=== PATIENT | female | born 1945 | race Caucasian/White ===

== ENCOUNTER → 2017-09-11 | Outpatient (CLI) | payer OTHER ==
--- NOTE | 2017-09-11 13:06 | RAD ---
Left lower extremity arterial Doppler ultrasound HISTORY: lt leg pain and toes bluish TECHNIQUE: Color Doppler, grayscale and duplex analysis performed of the right and left lower extremity arterial structures, from the common femoral artery through the calf. COMPARISON: None are available Findings: Left common femoral artery, superficial femoral artery and popliteal artery are patent. Left common femoral artery velocity is 106 cm/s. Superficial femoral artery velocities are 154, 53 and 59 at the proximal, mid and distal segments respectively. The posterior tibial artery velocities range from 16-27. Peroneal artery is 21. Anterior tibial artery is 21. Dorsalis pedis artery is 15. Monophasic waveforms are identified throughout. There is irregular calcified plaque throughout the arterial system. IMPRESSION: 1. Diffuse atherosclerotic disease. 2. Velocity elevation at the proximal superficial femoral artery could indicate a proximal high-grade stenosis. 3. No occlusive disease is seen. Ankle-brachial indices: The right ankle-brachial index is 0.98. The left ankle-brachial index is 0.58, which can be associated with claudication. Electronically signed by: Binu Perla MD (09/11/2017 1:02 PM) [id number]
== END | disposition home or self-care (01) ==
LOC: US 11:09
PROVIDERS: ATTEND Physician Assistant
DX: I70.0 Atherosclerosis of aorta (principal); I70.292 Other atherosclerosis of native arteries of extremities, left leg
CPT/HCPCS: 93922; 93926

== ENCOUNTER 2021-03-13 05:22 | Inpatient (IN) | payer MEDICARE ==
[~2021-03-13] VITALS: Ht 157.5 cm; Wt 115.3 kg
--- NOTE | 2021-03-13 06:08 | EKG ---
[address] [address] Test Date: 2021-03-13 Test Time: 06:03:12 Pat Name: ALICIA CHAUHAN Department: Room: Gender: F Front Tender: : 1945 Requested By: LORELEI AKERS Order Number: [id number] Reading MD: Javid Dow MD Measurements Intervals [place] Rate: 79 P: 50 WI: 146 QRS: 13 QRSD: 80 T: 28 QT: 386 QTc: 444 Interpretive Statements SINUS RHYTHM Electronically Signed On 03-13-2021 16:11:27 CYCLE DIRECTOR by Javid Dow MD
[2021-03-13 06:11] LABS: BASO # 0.1 x10^3/uL (0.0-0.2); BASO % 1 % (0-3); EOS # 0.2 x10^3/uL (0.0-0.7); EOS % 1 % (0-3); HEMATOCRIT 43.8 % (36.0-47.0); HEMOGLOBIN 14.5 g/dL (12.0-15.5); LYMPH # 1.3 x10^3/uL (1.0-4.8); LYMPH % 10 % (24-48); MEAN CORPUSCULAR HEMOGLOBIN 31 pg (25-35); MEAN CORPUSCULAR HGB CONC 33 g/dL (31-37); MEAN CORPUSCULAR VOLUME 92 fL (79-100); MONO # 0.6 x10^3/uL (0.0-1.1); MONO % 5 % (0-9); NEUT # 10.9 x10^3uL (1.8-7.7); NEUT % 84 % (31-73); PLATELET COUNT 188 x10^3/uL (140-400); RED BLOOD COUNT 4.76 x10^6/uL (3.50-5.40); RED CELL DISTRIBUTION WIDTH 14.1 % (11.5-14.5)
[2021-03-13] MEDS ORDERED: NITROGLYCERIN SUBLINGUAL 0.4 MG BOTTLE OF 25. SL PRN ×2 (06:15→07:30)
[2021-03-13] MEDS ORDERED: ASPIRIN CHEWABLE 81 MG TABLET. PO ONE (06:15)
[2021-03-13] MEDS ORDERED: FUROSEMIDE 100 MG/10 ML VIAL IVP ONE (06:15)
[2021-03-13 06:19] LABS: CALCIUM 9.3 mg/dL (8.5-10.1); CREATININE 1.1 mg/dL (0.6-1.0); GFR 48.3; POTASSIUM 3.7 mmol/L (3.5-5.1)
--- NOTE | 2021-03-13 06:19 | PHYS DOC ---
Past History Past Surgical History: Other Additional Past Surgical Histo: breast surgery Adult General Chief Complaint Chief Complaint: SHORTNESS OF BREATH HPI HPI Patient is a 75-year-old female who presented via POV for shortness of breath. States she has had 1 month of worsening shortness of breath. States within the past week she has had nasal congestion and slight rhinorrhea which she attributed to allergies. She also admits in the past 3 days she has missed her Lasix dose. States that she has been more short of breath that is exacerbated with physical exertion and laying flat. Has not had any fever, known sick con tacts or travel. She admits she is fully vaccinated against COVID-19 and received booster shot. On arrival, patient was hypoxic and complaining of shortness of breath only, no fever, dizziness, hemoptysis, ripping or tearing sensation in chest, chest pain, abdominal pain, bladder or bowel issues, unilateral leg swelling and/or pain, changes in motor or sensory or neuro function. Review of Systems Review of Systems Fourteen body systems of review of systems have been reviewed. See HPI for pertinent positives and negative responses, other dukes all other systems are negative, non-pertinent or non-contributory Allergies Allergies Allergies Coded Allergies Type Severity Reaction Last Updated Verified amoxicillin Allergy Unknown rash 03/13/21 Yes Physical Exam Physical Exam Constitutional: Well developed, well nourished, no acute distress, non-toxic appearance. HENT: Normocephalic, atraumatic, bilateral external ears normal, oropharynx moist, no oral exudates, nose normal. Nasal cannula in place Eyes: PERRLA, EOMI, conjunctiva normal, no discharge. Neck: Normal range of motion, no tenderness, supple, no stridor. Cardiovascular: Heart rate regular, sinus rhythm, no murmurs rubs or gallops Lungs & Thorax: Slight increased work of breathing, requiring supplemental O2 via nasal cannula to keep oxygen saturations greater than 90%, mild accessory muscle usage and neck, rales present in bilateral lung bases Abdomen: Bowel sounds normal, soft, no tenderness, no masses, no pulsatile masses. Nonsurgical abdomen, no peritoneal signs Skin: Warm, dry, no erythema, no rash. Back: No tenderness, no CVA tenderness. Extremities: No tenderness, no cyanosis, no clubbing, ROM intact, no edema. Neurologic: Alert and oriented X 3, grossly normal motor & sensory function, no focal deficits noted. Psychologic: Affect normal, judgement normal, mood normal. Current Patient Data Vital Signs Vital Signs Date Time Temp Pulse Resp B/P (MAP) Pulse Ox O2 Delivery O2 Flow Rate FiO2 03/13/21 05:29 98.2 89 27 209/128 (155) 96 NonRebreather Mask Lab Results Laboratory Tests Test 03/13/21 05:50 White Blood Count 13.0 x10^3/uL (4.0-11.0) H Red Blood Count 4.76 x10^6/uL (3.50-5.40) Hemoglobin 14.5 g/dL (12.0-15.5) Hematocrit 43.8 % (36.0-47.0) Mean Corpuscular Volume 92 fL (79-100) Mean Corpuscular Hemoglobin 31 pg (25-35) Mean Corpuscular Hemoglobin Concent 33 g/dL (31-37) Red Cell Distribution Width 14.1 % (11.5-14.5) Platelet Count 188 x10^3/uL (140-400) Neutrophils (%) (Auto) 84 % (31-73) H Lymphocytes (%) (Auto) 10 % (24-48) L Monocytes (%) (Auto) 5 % (0-9) Eosinophils (%) (Auto) 1 % (0-3) Basophils (%) (Auto) 1 % (0-3) Neutrophils # (Auto) 10.9 x10^3uL (1.8-7.7) H Lymphocytes # (Auto) 1.3 x10^3/uL (1.0-4.8) Monocytes # (Auto) 0.6 x10^3/uL (0.0-1.1) Eosinophils # (Auto) 0.2 x10^3/uL (0.0-0.7) Basophils # (Auto) 0.1 x10^3/uL (0.0-0.2) EKG EKG EKG ordered and interpreted by myself at 0605 hrs. as sinus rhythm at 79 bpm, unremarkable intervals, no axis deviation, no obvious ischemic findings, no STEMI Radiology/Procedures Radiology/Procedures EXAM: XR CHEST 1V 03/13/2021 5:35 AM CLINICAL INDICATION: Shortness of breath COMPARISON: None available TECHNIQUE: AP view of the chest FINDINGS: The heart is enlarged. Pulmonary vasculature is indistinct. There are bibasilar airspace opacities. No definite pleural effusion or pneumothorax. Chronic deformity of the right proximal humerus. IMPRESSION: Cardiomegaly and mild pulmonary edema. Electronically signed by: Zenia Trejo MD (03/13/2021 6:25 AM) [facility] ////////////////////// CTA chest with contrast dated 03/13/2021. No comparison available CLINICAL INDICATION: Shortness of breath. TECHNIQUE: Contiguous axial imaging the chest performed following the bolus administration of 75 cc Omnipaque 350. Study was performed as dedicated PE protocol with thin cut coronal and sagittal MIPS reconstruction. One or more of the following individualized dose reduction techniques were utilized for this examination: 1. Automated exposure control 2. Adjustment of the mA and/or kV according to patient size 3. Use of iterative reconstruction technique FINDINGS: Contrast bolus is adequate. No evidence of central, lobar or segmental pulmonary embolus. Subsegmental branches are not well evaluated based on technique. Heart size is mildly enlarged. Trace pericardial effusion. Coronary artery calcifications. Borderline enlarged left paratracheal, right paratracheal and subcarinal and bilateral hilar lymph nodes measuring up to 10 mm short axis. Central airways are patent. Moderate emphysema. Patchy increased density at both lung bases with small bilateral pleural effusions. There is also some patchy increased density in the left upper lobe and lingula. No pneumothorax. Limited images of the upper abdomen shows a mass at the left adrenal gland measuring 2.3 cm. There is also a low-density lesion at the upper pole right kidney consistent with cyst. Bone window show no acute finding. Multilevel spondylosis. IMPRESSION: 1. No evidence of central, lobar or segmental pulmonary embolus. 2. Patchy bibasilar airspace disease, atelectasis versus pneumonia. There are small to moderate-sized bilateral pleural effusions. 3. Borderline enlarged mediastinal and bilateral hilar lymph nodes, nonspecific. 4. Cardiomegaly and coronary artery calcifications. 5. Indeterminate left adrenal nodule. Electronically signed by: Binu Milelr MD (03/13/2021 7:06 AM) [facility] Heart Score C/O Chest Pain: No HEART Score for Chest Pain: HEART Score for Chest Pain Response (Comments) Value History Slighlty/Non-Suspicious 0 ECG Normal 0 Age > 65 2 Risk Factors >3 Risk Factors or Hx CAD 2 Troponin < Normal Limit 0 Total 4 Risk Factors: Risk Factors: DM, Current or recent (<one month) smoker, HTN, HLP, family history of CAD, obesity. Risk Scores: Risk Factors: DM, Current or recent (<one month) smoker, HTN, HLP, family history of CAD, obesity. Course & Med Decision Making Course & Med Decision Making I assumed care of patient after comprehensive signout from outgoing physician I personally saw patient and repeated aspects of history and physical exam. Comprehensive ER work-up obtained concerning for fluid overloaded state and patient who is missed Lasix for past 48 to 72 hours Patient most likely suffering from acute exacerbation of CHF due to fluid overload. Cannot exclude infectious etiology though given recent URI symptoms and productive cough Nitro assisted with blood pressure control and fluid overload, 100 mg IV Lasix administered. Subsequent 1 g Rocephin and 500 mg azithromycin administered for potential infectious etiology I contacted patient's PCP who also serves as hospitalist, patient accepted under the care of Dr. Zambrano for further inpatient medical management I have updated patient on proposed plan of care that included hospital admission for which she was amenable. She confirms she is full CODE STATUS at time of admission Dragon Disclaimer Dragon Disclaimer This electronic medical record was generated, in whole or in part, using a voice recognition dictation system. Departure Departure: Impression: Primary Impression: Acute respiratory failure with hypoxia Additional Impression: Acute exacerbation of CHF (congestive heart failure) Disposition: ADMITTED INPATIENT Admitting Physician: Devi Zambrano Condition: STABLE Referrals: DEVI ZAMBRANO MD (PCP) Problem Qualifiers RAGINI DE LA TORRE DO Mar 13, 2021 06:19
[2021-03-13 06:25] LABS: ALBUMIN 3.4 g/dL (3.4-5.0); ALBUMIN/GLOBULIN RATIO 0.9 (1.0-1.7); TOTAL BILIRUBIN 0.4 mg/dL (0.2-1.0); TOTAL PROTEIN 7.1 g/dL (6.4-8.2)
--- NOTE | 2021-03-13 06:28 | RAD ---
EXAM: XR CHEST 1V 03/13/2021 5:35 AM CLINICAL INDICATION: Shortness of breath COMPARISON: None available TECHNIQUE: AP view of the chest FINDINGS: The heart is enlarged. Pulmonary vasculature is indistinct. There are bibasilar airspace o pacities. No definite pleural effusion or pneumothorax. Chronic deformity of the right proximal humer us. IMPRESSION: Cardiomegaly and mild pulmonary edema. Electronically signed by: Zenia Trejo MD (03/13/2021 6:25 AM) [facility]
[2021-03-13] MEDS ORDERED: IOHEXOL 350 MG/ML 100 ML VIAL. IV ONE (06:30)
[2021-03-13] MEDS ORDERED: CONTRAST GIVEN. MC PRN (06:30)
--- NOTE | 2021-03-13 07:08 | RAD ---
CTA chest with contrast dated 03/13/2021. No comparison available CLINICAL INDICATION: Shortness of breath. TECHNIQUE: Contiguous axial imaging the chest performed following the bolus administration of 75 cc Omnipaque 35 0. Study was performed as dedicated PE protocol with thin cut coronal and sagittal MIPS reconstructio n. One or more of the following individualized dose reduction techniques were utilized for this examinat ion: 1. Automated exposure control 2. Adjustment of the mA and/or kV according to patient size 3. Use of iterative reconstruction technique FINDINGS: Contrast bolus is adequate. No evidence of central, lobar or segmental pulmonary embolus. Subsegmenta l branches are not well evaluated based on technique. Heart size is mildly enlarged. Trace pericardial effusion. Coronary artery calcifications. Borderline enlarged left paratracheal, right paratracheal and subcarinal and bilateral hilar lymph nodes measur ing up to 10 mm short axis. Central airways are patent. Moderate emphysema. Patchy increased density at both lung bases with smal l bilateral pleural effusions. There is also some patchy increased density in the left upper lobe and lingula. No pneumothorax. Limited images of the upper abdomen shows a mass at the left adrenal gland measuring 2.3 cm. There is also a low-density lesion at the upper pole right kidney consistent with cyst. Bone window show no acute finding. Multilevel spondylosis. IMPRESSION: 1. No evidence of central, lobar or segmental pulmonary embolus. 2. Patchy bibasilar airspace disease, atelectasis versus pneumonia. There are small to moderate-sized bilateral pleural effusions. 3. Borderline enlarged mediastinal and bilateral hilar lymph nodes, nonspecific. 4. Cardiomegaly and coronary artery calcifications. 5. Indeterminate left adrenal nodule. Electronically signed by: Binu Miller MD (03/13/2021 7:06 AM) [facility]
[2021-03-13] MEDS ORDERED: ACETAMINOPHEN 325 MG TABLET PO PRN (07:30)
[2021-03-13] MEDS ORDERED: AZITHROMYCIN 500 MG in IV NORMAL SALINE 250ML 250 ML IV ONE (07:30)
[2021-03-13] MEDS ORDERED: AZITHROMYCIN 500 MG VIAL. IV ONE (07:35)
[2021-03-13] MEDS ORDERED: IV NORMAL SALINE 250ML 250 ML ONE ×2 (07:35→07:38)
[2021-03-13 07:54] LABS: BILIRUBIN,URINE NEG (NEG); CLARITY,URINE CLEAR; COLOR,URINE YELLOW; GLUCOSE,URINE NEG (NEG); NITRITE,URINE NEG (NEG); UROBILINOGEN,URINE 0.2 mg/dL (0.2 mg/dL)
[2021-03-13 07:55] LABS: BACTERIA,URINE 0 /HPF (0-FEW); HYALINE CASTS, URINE OCC /HPF; SQUAMOUS EPITHELIAL CELL,UR MOD /LPF
[2021-03-13 08:43] VITALS: BP 140/84
--- NOTE | 2021-03-13 09:18 | NUR ---
PATIENT IS 75 Y O ARRIVED VIA EMS, PATIENT DENIED ANY PAIN AT THIS TIME, C/O COUGH AND SOB, CURRENTLY ON 4L OF O2 WITH SAT OF 93%. PATIENT WAS ORIENTED TO THE ROOM AND HOSPITAL POLICIES. PATIENT IS CURRENTLY IN A BED AWAKE AND EATING BREAKFAST, CALL LIGHT WITHIN THE REACH.
[2021-03-13] MEDS ORDERED: LEVO75TA PO (10:52)
[2021-03-13] MEDS ORDERED: LISI40TA6 PO (10:52)
[2021-03-13] MEDS ORDERED: METO50TA6 PO (10:52)
[2021-03-13] MEDS ORDERED: AMLO-186 PO (10:52)
[2021-03-13] MEDS ORDERED: CETI10TA74 PO (10:52)
[2021-03-13] MEDS ORDERED: MULT-238 PO (10:52)
[2021-03-13] MEDS ORDERED: CRESTOR10 MG PO (10:52)
[2021-03-13] MEDS ORDERED: CITA20TA6 PO (10:52)
[2021-03-13] MEDS ORDERED: CYCL10TA19 PO (10:52)
[2021-03-13] MEDS ORDERED: FENO160T PO (10:52)
[2021-03-13] MEDS ORDERED: FURO40TA4 PO (10:52)
[2021-03-13] MEDS ORDERED: OMEG1CAP50 PO (10:52)
[2021-03-13] MEDS ORDERED: POTA10TA12 PO (10:52)
[2021-03-13] MEDS: PROMETH/CODEINE 6.25/10MG 5 ML SYRUP. PO PRN ×2 (11:10→20:45)
[2021-03-13 11:32] VITALS: BP 128/76
--- NOTE | 2021-03-13 14:52 | NUR ---
CONSULT FOR SENIOR SOFTWARE PROJECT MANAGER HAS BEEN CALLED.
[2021-03-13 15:31] VITALS: BP 119/78
[2021-03-13 19:00] VITALS: BP 138/84
[2021-03-13] MEDS: POTASSIUM CHLORIDE 10 MEQ TABLET.ER. PO SCH (20:44)
[2021-03-13] MEDS: amLODIPine BESYLATE 5 MG TABLET PO SCH (20:45)
[2021-03-13] MEDS: METOPROLOL TART IMMED RELEASE 50 MG TABLET PO SCH (20:45)
[2021-03-13 23:00] VITALS: BP 159/84
[2021-03-14 05:00] VITALS: BP 166/78
[2021-03-14 05:57] LABS: HEMOGLOBIN A1C 5.6 % (4.8-5.6)
[2021-03-14 06:56] LABS: BASO # 0.1 x10^3/uL (0.0-0.2); BASO % 1 % (0-3); EOS # 0.2 x10^3/uL (0.0-0.7); EOS % 2 % (0-3); HEMATOCRIT 38.6 % (36.0-47.0); LYMPH # 1.5 x10^3/uL (1.0-4.8); LYMPH % 22 % (24-48); MEAN CORPUSCULAR HEMOGLOBIN 31 pg (25-35); MEAN CORPUSCULAR HGB CONC 34 g/dL (31-37); MEAN CORPUSCULAR VOLUME 93 fL (79-100); MONO # 0.6 x10^3/uL (0.0-1.1); MONO % 8 % (0-9); NEUT # 4.7 x10^3uL (1.8-7.7); NEUT % 67 % (31-73); PLATELET COUNT 163 x10^3/uL (140-400); RED BLOOD COUNT 4.16 x10^6/uL (3.50-5.40); RED CELL DISTRIBUTION WIDTH 14.4 % (11.5-14.5)
[2021-03-14 07:07] LABS: CALCIUM 8.5 mg/dL (8.5-10.1); CREATININE 1.3 mg/dL (0.6-1.0); GFR 39.8; POTASSIUM 3.9 mmol/L (3.5-5.1)
--- NOTE | 2021-03-14 08:22 | PDOC ---
CARDIO Progress Notes Date & Time Date of Service DATE: 03/14/21 TIME: 08:19 Time of Evaluation 07:45 Subjective Notes Breathing and edema improved. Has cough Vitals Vitals Vital Signs Date Time Temp Pulse Resp B/P (MAP) Pulse Ox O2 Delivery O2 Flow Rate FiO2 03/14/21 05:00 98.0 80 20 166/78 (107) 97 Nasal Cannula 4.0 Weight Weight [ ] Input and Output I.O. Intake and Output 03/14/21 07:00 Intake Total 720 ml Output Total 1675 ml Balance -955 ml Intake Oral 720 ml Output Urine Total 1675 ml # Voids 1 Laboratory Labs Laboratory Tests Test 03/13/21 05:50 03/13/21 05:55 03/13/21 07:15 03/14/21 06:27 White Blood Count 13.0 x10^3/uL (4.0-11.0) 7.0 x10^3/uL (4.0-11.0) Red Blood Count 4.76 x10^6/uL (3.50-5.40) 4.16 x10^6/uL (3.50-5.40) Hemoglobin 14.5 g/dL (12.0-15.5) 13.0 g/dL (12.0-15.5) Hematocrit 43.8 % (36.0-47.0) 38.6 % (36.0-47.0) Mean Corpuscular Volume 92 fL (79-100) 93 fL (79-100) Mean Corpuscular Hemoglobin 31 pg (25-35) 31 pg (25-35) Mean Corpuscular Hemoglobin Concent 33 g/dL (31-37) 34 g/dL (31-37) Red Cell Distribution Width 14.1 % (11.5-14.5) 14.4 % (11.5-14.5) Platelet Count 188 x10^3/uL (140-400) 163 x10^3/uL (140-400) Neutrophils (%) (Auto) 84 % (31-73) 67 % (31-73) Lymphocytes (%) (Auto) 10 % (24-48) 22 % (24-48) Monocytes (%) (Auto) 5 % (0-9) 8 % (0-9) Eosinophils (%) (Auto) 1 % (0-3) 2 % (0-3) Basophils (%) (Auto) 1 % (0-3) 1 % (0-3) Neutrophils # (Auto) 10.9 x10^3uL (1.8-7.7) 4.7 x10^3uL (1.8-7.7) Lymphocytes # (Auto) 1.3 x10^3/uL (1.0-4.8) 1.5 x10^3/uL (1.0-4.8) Monocytes # (Auto) 0.6 x10^3/uL (0.0-1.1) 0.6 x10^3/uL (0.0-1.1) Eosinophils # (Auto) 0.2 x10^3/uL (0.0-0.7) 0.2 x10^3/uL (0.0-0.7) Basophils # (Auto) 0.1 x10^3/uL (0.0-0.2) 0.1 x10^3/uL (0.0-0.2) Sodium Level 143 mmol/L (136-145) 144 mmol/L (136-145) Potassium Level 3.7 mmol/L (3.5-5.1) 3.9 mmol/L (3.5-5.1) Chloride Level 107 mmol/L (98-107) 106 mmol/L (98-107) Carbon Dioxide Level 27 mmol/L (21-32) 32 mmol/L (21-32) Anion Gap 9 (6-14) 6 (6-14) Blood Urea Nitrogen 13 mg/dL (7-20) 17 mg/dL (7-20) Creatinine 1.1 mg/dL (0.6-1.0) 1.3 mg/dL (0.6-1.0) Estimated GFR (Cockcroft-Gault) 48.3 39.8 BUN/Creatinine Ratio 12 (6-20) Glucose Level 174 mg/dL (70-99) 113 mg/dL (70-99) Hemoglobin A1c 5.6 % (4.8-5.6) Calcium Level 9.3 mg/dL (8.5-10.1) 8.5 mg/dL (8.5-10.1) Total Bilirubin 0.4 mg/dL (0.2-1.0) Aspartate Amino Transf (AST/SGOT) 16 U/L (15-37) Alanine Aminotransferase (ALT/SGPT) 24 U/L (14-59) Alkaline Phosphatase 112 U/L (46-116) Troponin I High Sensitivity 28 ng/L (4-50) XB-Owr-R-Type Natriuretic Peptide 2216 pg/mL (0-449) Total Protein 7.1 g/dL (6.4-8.2) Albumin 3.4 g/dL (3.4-5.0) Albumin/Globulin Ratio 0.9 (1.0-1.7) Coronavirus (COVID-19)(PCR) Not detected (NOT DETECTD) SARS-CoV-2 Antigen (Rapid) Negative (NEGATIVE) Urine Collection Type Unknown Urine Color Yellow Urine Clarity Clear Urine pH 6.5 Urine Specific [place] 1.020 Urine Protein >100 mg/dl (NEG-TRACE) Urine Glucose (UA) Neg mg/dL (NEG) Urine Ketones (Stick) Neg mg/dL (NEG) Urine Blood Neg (NEG) Urine Nitrite Neg (NEG) Urine Bilirubin Neg (NEG) Urine Urobilinogen Dipstick 0.2 mg/dL (0.2 mg/dL) Urine Leukocyte Esterase Neg (NEG) Urine RBC 3-5 /HPF (0-2) Urine WBC 11-20 /HPF (0-4) Urine Squamous Epithelial Cells Mod /LPF Urine Bacteria 0 /HPF (0-FEW) Urine Hyaline Casts Occ /HPF Urine Mucus Slight /LPF Microbiology Micro Microbiology 03/13/21 Urine Culture - Final, Complete Physical Exams HEENT: Neck Supple W Full Motion Chest: Symmetric Lungs: Other (coarse ) Heart: RRR Abdomen: Soft N/T, Other (obese) Extremities: Other (1+ bilateral LE edema ) Neurology: alert, oriented, follow commands Assessment Assessment 1. Acute respiratory failure with acute acute probable diastolic heart failure 2. CAD; coronary artery calcification noted on chest CTA 3. Hypertension; labile this am 4. Hyperlipidemia 5. Morbid obesity 6. Leukocytosis Recommendations Mild diuresis with monitoring of renal function Lipids Add ASA therapy Echo to assess LV systolic function Monitor BP trends Outpatient ischemic evaluation Supportive care Outpatient sleep study ESTER HERRERA APRN Mar 14, 2021 08:22
--- NOTE | 2021-03-14 08:33 | PDOC ---
PROVIDER NOTE PROVIDER NOTE PROVIDER NOTE CARDIOLOGY CONSULTATION NOTE: LATE ENTRY FOR 03/13/21 REASON FOR CONSULTATION - HEART FAILURE CONSULTING PHYSICIAN: DR. Garcia HPI: Brenda is a pleasant 75-year-old woman coming in the hospital for evaluation of heart failure. She has been in her usual state of health and over the last few weeks she has had worsening dyspnea on exertion. Upon arrival to the ER she was noted to have bilateral pleural effusions on chest x-ray and was admitted for further evaluation and treatment. She denies any prior history of cardiovascular issues such as heart failure, coronary artery disease. No prior arrhythmias or any interventions that she knows of. Since admission to the h ospital and some diuresis she has felt a little better. Past medical history 1. Blue toe syndrome 2. Severe peripheral vascular disease status post left common iliac artery stenting 3. Dyslipidemia 4. Coronary disease, no prior history of intervention but known coronary artery calcification by imaging Social history: Prior history of tobacco abuse. Occasional alcohol use. No illicit drug use. Family history noncontributory Allergies to amoxicillin and niacin. Home cardiovascular medications: Her medications are unclear to me but previously review of [facility]'s reveals that she was on amlodipine, apixaban, aspirin, lisinopril, rosuvastatin and metoprolol. Review systems negative for 10 out of 14 systems reviewed unless otherwise mentioned above in HPI PHYSICAL EXAMINATION: The patient appeared well nourished and normally developed. Head exam is unremarkable. No scleral icterus or corneal arcus noted. Neck is without jugular venous distension, thyromegaly, or carotid bruits. Carotid ups trokes are brisk bilaterally. Lungs are notable for decreased breath sounds bilaterally. Cardiac exam reveals the PMI to be normally sized and situated. Rhythm is regular. First and second heart sounds normal. No murmurs, rubs or gallops. Abdominal exam reveals normal bowel sounds, no masses, no organomegaly and no aortic enlargement. Extremities are notable for 1+ edema, diminished pedal pulses. Msk: No traumua Neuro: No focal deficits DIAGNOSTIC STUDIES: No recent cardiovascular testing EKG demonstrates sinus rhythm CT angiogram of the chest reveals bilateral pleural effusions without any evidence of pulmonary embolus Impression: 1. Acute probable diastolic heart failure cannot rule out ischemic heart disease given multiple other risk factors 2. Known severe peripheral arterial disease status post left common iliac artery stenting 3. Dyslipidemia 4. Hypertension 5. Morbid obesity Recommendations: 1. Continue diuresis for her current heart failure with a goal net -1 to 2 L over the next 24 hours. 2. We will obtain an echocardiogram to determine her ejection fraction and then based on that could consider inpatient versus outpatient evaluation for her cardiomyopathy. Thank you for this consultation. We will follow along closely. Justification of Admission: Justification of Admission: Justification of Admission Dx: N/A MARLINE SANDOVAL MD Mar 14, 2021 08:33
[2021-03-14] MEDS ORDERED: FUROSEMIDE 40 MG TABLET PO SCH (09:00)
[2021-03-14] MEDS: FUROSEMIDE 20 MG/2 ML VIAL IVP SCH (09:32)
[2021-03-14] MEDS: CETIRIZINE HCL 10 MG TABLET PO SCH (09:32)
[2021-03-14] MEDS: OMEGA-3 FATTY ACIDS/FISH OIL 1,000 MG CAPSULE. PO SCH (09:33)
[2021-03-14] MEDS: FENOFIBRATE NANOCRYSTALLIZED 145 MG TABLET PO SCH (09:33)
[2021-03-14] MEDS: amLODIPine BESYLATE 5 MG TABLET PO SCH ×2 (09:34→20:43)
[2021-03-14] MEDS: LISINOPRIL 20 MG TABLET PO SCH (09:34)
[2021-03-14] MEDS: ATORVASTATIN CALCIUM 20 MG TABLET PO SCH (09:35)
[2021-03-14] MEDS: POTASSIUM CHLORIDE 10 MEQ TABLET.ER. PO SCH ×3 (09:35→20:43)
[2021-03-14] MEDS: CITALOPRAM 20 MG TABLET. PO SCH (09:35)
[2021-03-14] MEDS: METOPROLOL TART IMMED RELEASE 50 MG TABLET PO SCH ×2 (09:36→20:43)
[2021-03-14] MEDS: MULTIVITAMIN with MINERAL TABLET. PO SCH (09:36)
[2021-03-14 10:31] VITALS: BP 115/72
[2021-03-14 15:12] VITALS: BP 123/83
[2021-03-14 19:37] VITALS: BP 151/82
[2021-03-14] MEDS: PROMETH/CODEINE 6.25/10MG 5 ML SYRUP. PO PRN (20:43)
--- NOTE | 2021-03-14 22:05 | HP ---
DATE OF SERVICE: 03/14/2021 ADMIT DATE: 03/13/2021 HISTORY OF PRESENT ILLNESS: The patient came in through the Emergency Room with increased shortness of breath over the last 2-3 days. Prior to admission, the patient notes that she has been having problems with her breathing, but nothing significant until the last couple of days prior to her admission when she had marked orthopnea, dyspnea and some rhinorrhea. She denies chest pain. She also admits in the last 3 days, she quit taking her Lasix, water pills and as a result of this has gained approximately 5-10 extra pounds of weight as well as having more difficulty in breathing. As a result of this, the patient came in through the Emergency Room and was found to have a significant amount of congestive heart failure and as a result of that, the patient was admitted to the hospital for further evaluation and treatment of her CHF. PAST MEDICAL AND SURGICAL HISTORY: Includes that of congestive heart failure, morbid obesity, hypertriglyceridemia, degenerative arthritis of the hands and of the knees, COPD, hyperlipidemia. She has had severe diverticulosis. She has had vascular surgery, right breast surgery, hypothyroidism. FAMILY HISTORY: Father had cancer of the kidney. Mother had heart disease. ALLERGIES: AMOXICILLIN AND NIACIN. SOCIAL HISTORY: The patient is a former smoker. She has stopped smoking more than 10 years. Drinks 2 cups of coffee a day. Drinks a Diet Coke and tea daily. Denies any hard drug use or alcohol use. MEDICATIONS: Fish oil, vitamin E, multivitamin, vitamin C, vitamin D, cyclobenzaprine, fenofibrate, Flonase nasal spray, Crestor 10 mg, Norvasc 5, Zyrtec 10, levothyroxine, Celexa 20, lisinopril 40, furosemide 40, metoprolol tartrate. REVIEW OF SYSTEMS: Positive for rhinorrhea. She denies any chest pain. She does have shortness of breath. She does have some orthopnea. Denies any nausea, vomiting, melena, hematochezia or hematemesis and neurologically intact. PHYSICAL EXAMINATION: GENERAL: This is a pleasant, overweight white female in no apparent distress. VITAL SIGNS: Blood pressure 166/78, respiratory rate 18, pulse 90, afebrile, 3 liters at 95%. HEENT: The patient's head was atraumatic, normocephalic. Eyes: PERRLA without jaundice. Mouth and throat were normal. NECK: Supple without JVD, carotid or thyroidmegaly. LUNGS: Diminished throughout, poor movement of air, rales, rhonchi noted in the bases. CARDIOVASCULAR: Regular sinus rhythm, S1, S2, without murmur, rub, thrill, or extra heart sound. ABDOMEN: Soft, nontender, markedly obese, protuberant. Positive bowel sounds, no hepatosplenomegaly. EXTREMITIES: No clubbing, cyanosis, +1-2 pitting edema. Pulses noted distally 2/4. NEUROLOGIC: The patient is alert and oriented. Speech fluent, spontaneous, appropriate. Cranial nerves 2-12 grossly intact. IMPRESSION: Acute on top of chronic diastolic heart failure, coronary artery disease, essential hypertension, hyperlipidemia, morbid obesity, leukocytosis, acute bronchitis, chronic kidney disease stage IIIA, urinary tract infection, COVID-19 negative. The patient otherwise continued to be monitored carefully, diuresed and make further evaluation. Cardiology consultation and make further assessment on her as indicated. SHANTE DR: Genie TID: [id number]
[2021-03-14 23:29] VITALS: BP 128/67
[2021-03-15 06:11] VITALS: BP 154/80
[2021-03-15] MEDS: FENOFIBRATE NANOCRYSTALLIZED 145 MG TABLET PO SCH (08:54)
[2021-03-15] MEDS: ATORVASTATIN CALCIUM 20 MG TABLET PO SCH (08:54)
[2021-03-15] MEDS: PROMETH/CODEINE 6.25/10MG 5 ML SYRUP. PO PRN ×2 (08:54→20:39)
[2021-03-15] MEDS: OMEGA-3 FATTY ACIDS/FISH OIL 1,000 MG CAPSULE. PO SCH (08:55)
[2021-03-15] MEDS: POTASSIUM CHLORIDE 10 MEQ TABLET.ER. PO SCH ×3 (08:55→20:41)
[2021-03-15] MEDS: ASPIRIN ENTERIC COATED 81 MG TABLET.DR. PO SCH (08:55)
[2021-03-15] MEDS: CETIRIZINE HCL 10 MG TABLET PO SCH (08:55)
[2021-03-15] MEDS: amLODIPine BESYLATE 5 MG TABLET PO SCH ×2 (08:56→20:40)
[2021-03-15] MEDS: FUROSEMIDE 20 MG/2 ML VIAL IVP SCH (08:57)
[2021-03-15] MEDS: LISINOPRIL 20 MG TABLET PO SCH (08:57)
[2021-03-15] MEDS: MULTIVITAMIN with MINERAL TABLET. PO SCH (08:58)
[2021-03-15] MEDS: METOPROLOL TART IMMED RELEASE 50 MG TABLET PO SCH ×2 (08:58→20:40)
[2021-03-15] MEDS: CITALOPRAM 20 MG TABLET. PO SCH (08:58)
[2021-03-15 11:08] VITALS: BP 138/83
--- NOTE | 2021-03-15 12:39 | PDOC ---
PROGRESS NOTES Date of Service DOS: DATE: 03/15/21 TIME: 12:39 Diagnosis Problem Problems Medical Problems: (1) Acute exacerbation of CHF (congestive heart failure) Status: Acute (2) Acute respiratory failure with hypoxia Status: Acute Assessment 1. Acute respiratory failure with acute probably diastolic heart failure: Better compensated with diuresis. Change Lasix to p.o. tomorrow. 2. CAD; coronary artery calcification noted on chest CTA: Plan for 2D echo and ischemic evaluation as an outpatient 3. Hypertension; better controlled 4. Hyperlipidemia 5. Morbid obesity 6. Leukocytosis Subjective Feeling better with improvement in dyspnea Objective Vital Signs Date Time Temp Pulse Resp B/P (MAP) Pulse Ox O2 Delivery O2 Flow Rate FiO2 03/15/21 11:08 98.0 82 20 138/83 (101) 92 Nasal Cannula 1.0 Intake and Output 03/15/21 07:00 Intake Total 1400 ml Output Total 1100 ml Balance 300 ml Intake Oral 1400 ml Output Urine Total 1100 ml # Bowel Movements 1 Abdomen: Soft Heart: Regular rate Extremities: Other (Trace edema) General: Alert HEENT: Atraumatic Lungs: Other (Scattered crepitations bilaterally) Neuro: Normal speech Psych/Mental Status: Mental status NL Review of Relevant I have reviewed the following items marzena (where applicable) has been applied. Labs Microbiology 03/13/21 Urine Culture - Final, Complete Medications Current Medications Medications (Trade) Dose Ordered Sig/Isabelle Route PRN Reason Start Time Stop Time Status Last Admin Dose Admin Aspirin (Aspirin Enteric Coated) 81 mg [id number] PO 03/15/21 08:00 03/15/21 08:55 Vitals/I & O Vital Signs Date Time Temp Pulse Resp B/P (MAP) Pulse Ox O2 Delivery O2 Flow Rate FiO2 03/15/21 11:08 98.0 82 20 138/83 (101) 92 Nasal Cannula 1.0 I & O 03/14/21 03/14/21 03/15/21 15:00 23:00 07:00 Intake Total 480 ml 920 ml 0 ml Output Total 200 ml 600 ml 300 ml Balance 280 ml 320 ml -300 ml Justification of Admission: Justification of Admission: Justification of Admission Dx: N/A ALDEN HAGEN MD Mar 15, 2021 12:39
[2021-03-15 14:58] VITALS: BP 133/70
--- NOTE | 2021-03-15 15:47 | NUR ---
Nursing note: Patient alert and oriented x4, pleasant, cooperative, ambulatory with walker. Patient ambulated 80 feet with PT while on 1L of O2 supplement. Will continue to monitor patient's condition.
[2021-03-15 19:56] LABS: THYROID STIM HORMONE (TSH) 2.529 uIU/mL (0.358-3.740)
[2021-03-15 19:59] VITALS: BP 182/75
[2021-03-15] MEDS: LACTOBACILLUS RHAMNOSUS GG 1 CAPSULE. PO SCH (20:40)
--- NOTE | 2021-03-15 23:41 | PN ---
SUBJECTIVE: The patient is resting fairly comfortably, making fairly good progress overall. The patient in with congestive heart failure. She has been diuresed and making good progress overall. OBJECTIVE: VITAL SIGNS: Blood pressure 133/70, respiratory rate 20, pulse 80, afebrile, 1 liter at 88, 2 liters at 92. LUNGS: Diminished, but clear. CARDIOVASCULAR: Stable. ABDOMEN: Soft, nontender, no rebound or guarding. Positive bowel sounds, no hepatosplenomegaly noted. EXTREMITIES: The patient's urine culture unremarkable there. IMPRESSION: 1. Acute respiratory failure with acute probable diastolic heart failure, compensated with Lasix and cell changer to oral. 2. Coronary artery disease. 3. Hypertension. 4. Hyperlipidemia. 5. Morbid obesity. PLAN: Continue to monitor the patient accordingly and make further evaluation on her as indicated. CONCETTA DR: Genie TID: [id number]
[2021-03-16 00:32] VITALS: BP 108/76
[2021-03-16 06:03] VITALS: BP 146/84
[2021-03-16] MEDS: LACTOBACILLUS RHAMNOSUS GG 1 CAPSULE. PO SCH ×2 (08:12→21:24)
[2021-03-16] MEDS: FUROSEMIDE 20 MG/2 ML VIAL IVP SCH (08:12)
[2021-03-16] MEDS: OMEGA-3 FATTY ACIDS/FISH OIL 1,000 MG CAPSULE. PO SCH (08:12)
[2021-03-16] MEDS: ATORVASTATIN CALCIUM 20 MG TABLET PO SCH (08:13)
[2021-03-16] MEDS: FENOFIBRATE NANOCRYSTALLIZED 145 MG TABLET PO SCH (08:13)
[2021-03-16] MEDS: CITALOPRAM 20 MG TABLET. PO SCH (08:13)
[2021-03-16] MEDS: POTASSIUM CHLORIDE 10 MEQ TABLET.ER. PO SCH ×3 (08:13→21:25)
[2021-03-16] MEDS: amLODIPine BESYLATE 5 MG TABLET PO SCH ×2 (08:13→21:25)
[2021-03-16] MEDS: ASPIRIN ENTERIC COATED 81 MG TABLET.DR. PO SCH (08:14)
[2021-03-16] MEDS: CETIRIZINE HCL 10 MG TABLET PO SCH (08:14)
[2021-03-16] MEDS: MULTIVITAMIN with MINERAL TABLET. PO SCH (08:14)
[2021-03-16] MEDS: METOPROLOL TART IMMED RELEASE 50 MG TABLET PO SCH ×2 (08:14→21:24)
[2021-03-16] MEDS: LISINOPRIL 20 MG TABLET PO SCH (08:15)
[2021-03-16 10:34] VITALS: BP 100/67
[2021-03-16] MEDS: PROMETH/CODEINE 6.25/10MG 5 ML SYRUP. PO PRN ×2 (12:28→21:25)
[2021-03-16 14:39] VITALS: BP 98/66
--- NOTE | 2021-03-16 16:03 | PDOC ---
DATE OF SERVICE: DOS: DATE: 03/16/21 TIME: 16:01 SUBJECTIVE: Patient seen and examined OBJECTIVE: Problems: Problems Medical Problems: (1) Acute exacerbation of CHF (congestive heart failure) Status: Acute (2) Acute respiratory failure with hypoxia Status: Acute Vital Signs/I&O: Vital Signs Date Time Temp Pulse Resp B/P (MAP) Pulse Ox O2 Delivery O2 Flow Rate FiO2 03/16/21 14:39 97.7 72 20 98/66 (77) 96 Room Air 03/16/21 10:34 1.0 I & O 03/15/21 03/15/21 03/16/21 15:00 23:00 07:00 Intake Total 720 ml 440 ml 100 ml Output Total 500 ml 1150 ml 300 ml Balance 220 ml -710 ml -200 ml Physical Exam: The patient was seen and examined. Chest. Mildly decreased breath sounds bilaterally. CV. Regular rate and rhythm with a 1/6 systolic murmur. Abdomen. Soft. No tenderness. ASSESSMENT: 1. Acute respiratory failure with acute probably diastolic heart failure: Improving with diuresis. Changing Lasix to p.o. 2. CAD; coronary artery calcification noted on chest CTA: Plan for 2D echo and ischemic evaluation as an outpatient 3. Hypertension; better controlled 4. Hyperlipidemia. Continue medical treatment. 5. Morbid obesity 6. Leukocytosis. Monitoring. Justification of Admission: Justification of Admission: Justification of Admission Dx: N/A YUSUF DUARTE MD Mar 16, 2021 16:03
--- NOTE | 2021-03-16 16:11 | NUR ---
O2 ASSESSMENT. PATIENT IS AWAKE AND AT REST O2 IS 95% ON RA. PATIENT HAD O2 AT 87% ON RA WITH AMBULATION. DR. ZAMBRANO NOTIFIED. SIX MINUTES WALKED ORDERED.
[2021-03-16 20:05] VITALS: BP 158/85
[2021-03-16 23:42] VITALS: BP 143/81
[2021-03-17 05:00] VITALS: BP 100/67
[2021-03-17] MEDS: LISINOPRIL 20 MG TABLET PO SCH (08:06)
[2021-03-17] MEDS: CETIRIZINE HCL 10 MG TABLET PO SCH (08:06)
[2021-03-17] MEDS: FENOFIBRATE NANOCRYSTALLIZED 145 MG TABLET PO SCH (08:06)
[2021-03-17] MEDS: ASPIRIN ENTERIC COATED 81 MG TABLET.DR. PO SCH (08:06)
[2021-03-17] MEDS: CITALOPRAM 20 MG TABLET. PO SCH (08:06)
[2021-03-17] MEDS: METOPROLOL TART IMMED RELEASE 50 MG TABLET PO SCH (08:06)
[2021-03-17] MEDS: ATORVASTATIN CALCIUM 20 MG TABLET PO SCH (08:06)
[2021-03-17 08:07] VITALS: BP 100/67
[2021-03-17] MEDS: LACTOBACILLUS RHAMNOSUS GG 1 CAPSULE. PO SCH (08:07)
[2021-03-17] MEDS: amLODIPine BESYLATE 5 MG TABLET PO SCH (08:07)
[2021-03-17] MEDS: MULTIVITAMIN with MINERAL TABLET. PO SCH (08:07)
[2021-03-17] MEDS: OMEGA-3 FATTY ACIDS/FISH OIL 1,000 MG CAPSULE. PO SCH (08:07)
[2021-03-17] MEDS: POTASSIUM CHLORIDE 10 MEQ TABLET.ER. PO SCH ×2 (08:10→13:43)
[2021-03-17 08:33] LABS: CALCIUM 9.3 mg/dL (8.5-10.1); CREATININE 1.2 mg/dL (0.6-1.0); GFR 43.7; POTASSIUM 4.4 mmol/L (3.5-5.1)
[2021-03-17] MEDS ORDERED: FUROSEMIDE 20 MG TABLET PO SCH (09:00)
[2021-03-17] MEDS ORDERED: PROMETH PO (09:26)
[2021-03-17] MEDS ORDERED: AMLO-186 PO (09:26)
[2021-03-17] MEDS ORDERED: CODEINE PO (09:26)
--- NOTE | 2021-03-17 13:51 | PDOC ---
DATE OF SERVICE: DOS: DATE: 03/17/21 TIME: 13:49 SUBJECTIVE: Patient seen and examined OBJECTIVE: Problems: Problems Medical Problems: (1) Acute exacerbation of CHF (congestive heart failure) Status: Acute (2) Acute respiratory failure with hypoxia Status: Acute Vital Signs/I&O: Vital Signs Date Time Temp Pulse Resp B/P (MAP) Pulse Ox O2 Delivery O2 Flow Rate FiO2 03/17/21 13:44 Room Air 03/17/21 08:07 79 100/67 03/17/21 08:00 1.0 03/17/21 05:00 97.6 20 92 I & O 03/16/21 03/16/21 03/17/21 15:00 23:00 07:00 Intake Total 100 ml 560 ml 100 ml Output Total 1000 ml 150 ml Balance -900 ml 410 ml 100 ml Labs: Laboratory Tests Test 03/17/21 07:30 Sodium Level 144 mmol/L (136-145) Potassium Level 4.4 mmol/L (3.5-5.1) Chloride Level 106 mmol/L (98-107) Carbon Dioxide Level 27 mmol/L (21-32) Anion Gap 11 (6-14) Blood Urea Nitrogen 25 mg/dL (7-20) H Creatinine 1.2 mg/dL (0.6-1.0) H Estimated GFR (Cockcroft-Gault) 43.7 Glucose Level 118 mg/dL (70-99) H Calcium Level 9.3 mg/dL (8.5-10.1) Physical Exam: Chest. Mildly decreased breath sounds but improved. CV. Regular rate and rhythm. Abdomen. Soft. ASSESSMENT: 1. Acute respiratory failure with acute probably diastolic heart failure: The patient continues to improve on present medications. 2. CAD; coronary artery calcification noted on chest CTA: Plan for 2D echo and ischemic evaluation as an outpatient 3. Hypertension; better controlled 4. Hyperlipidemia. Continue medical treatment. 5. Morbid obesity Justification of Admission: Justification of Admission: Justification of Admission Dx: N/A YUSUF DUARTE MD Mar 17, 2021 13:51
--- NOTE | 2021-03-17 14:57 | NUR ---
Discharge Note: ALICIA CHAUHAN [address] Discharge instructions and discharge home medications reviewed with Patient and a copy given. All questions have been answered and understanding verbalized. The following instructions and handouts were given: CHF and amplodipine Discontinued lines and drains: Peripheral IV intact. Patient discharged to Home or Self Care withSpousevia Wheelchair Pt was given prescription for codeine cough syrup and a prescription for amplodipine was submitted electronically. Pt [facility]. [place] [facility] Pt's stated that a rep named Chaitanya had called earlier to drop off a concentrator at home. Pt was told [place] [facility] [place] if she had not heard or seen anyone yet. Pt verbalized understanding.
--- NOTE | 2021-03-18 05:02 | PN ---
SUBJECTIVE: The patient with congestive heart failure, chronic respiratory failure. The patient is being titrated for oxygen, having difficulty getting it being Thursday, but anyway the patient does have a drop of her oxygen saturation to 87% on a 6-minute walk. She will be supplied some as soon as we can, we will get her ____. OBJECTIVE: VITAL SIGNS: Blood pressure 100/67, respiratory rate 20, pulse 80, afebrile. The patient on 1 liter at 92%, 87% when walking. LUNGS: Diminished, but clear. CARDIOVASCULAR: Stable. ABDOMEN: Soft, nontender. EXTREMITIES: No clubbing ____, trace edema was noted. NEUROLOGIC: Intact. IMPRESSION: Acute on chronic diastolic heart failure, acute respiratory failure, coronary artery disease, hypertension, hyperlipidemia. PLAN: Continue to monitor the patient accordingly and make available her oxygen. TAWNY/MAYTE/BRADEN DR: Genie TID: [id number]
--- NOTE | 2021-03-20 15:33 | DS ---
HOSPITAL COURSE: A 75-year-old female came in with acute respiratory failure. The patient was noted to have a combination of exacerbation of COPD as well as acute on top of chronic diastolic heart failure. The patient also was noted to have hypertensive urgency as well as vacillation of her blood pressure is very uncontrolled, went down to approximately 98/60, respiratory rate 20, pulse 72. The patient has made good progress overall, although she did have a CTA, no pulmonary nodules. She did have enlarged mediastinal bilateral hilar lymph nodes, cardiomegaly, with coronary artery calcification, and adrenal nodule. Possible pneumonia was noted as well. She was treated with IV antibiotics initially as well as diuresed, although she was also noted to be extremely dehydrated as well. The patient's BNP was over 2200. BUN and creatinine 25 and 1.2. Blood sugar is hyperglycemic. Sodium and potassium 144 and 4.4. Hemoglobin and hematocrit 13 and 38. UA did show 11-20 white blood cells. COVID was non-detected. A1c was 5.6. The patient made good progress during the rest of her hospitalization, she was diuresed, treated with antibiotics as well as seen by Cardiology. She will follow up with her assistant health educator for further evaluation and treatment and noted above diagnosis. The patient will be on a heart healthy diet, low sodium diet. The patient has acute on top of chronic respiratory distress, acute on top of diastolic heart failure, compensated coronary artery disease, morbid obesity, hypertension, hyperlipidemia, hyperglycemia, chronic kidney disease stage IIIA. The patient will be discharged home. Follow up as an outpatient. See MRAD and heart healthy diet. TAWNY/EVELIN/ESTHER DR: TAWNY/gerhard TID: [id number]
== END 2021-03-17 15:05 | disposition home or self-care (01) | DRG 177 ==
LOC: ER 05:22 → 1 SOUTH 07:26
PROVIDERS: ADMIT Family Medicine; ATTEND Family Medicine
DX: J15.6 Pneumonia due to other Gram-negative bacteria (principal); J96.21 Acute and chronic respiratory failure with hypoxia; I50.33 Acute on chronic diastolic (congestive) heart failure; I13.0 Hypertensive heart and chronic kidney disease with heart failure and stage 1 through stage 4 chronic kidney disease, or unspecified chronic kidney disease; J44.0 Chronic obstructive pulmonary disease with (acute) lower respiratory infection; N39.0 Urinary tract infection, site not specified; J15.9 Unspecified bacterial pneumonia; E03.9 Hypothyroidism, unspecified; E27.8 Other specified disorders of adrenal gland; E66.01 Morbid (severe) obesity due to excess calories; E78.1 Pure hyperglyceridemia; E78.5 Hyperlipidemia, unspecified; I25.10 Atherosclerotic heart disease of native coronary artery without angina pectoris; I16.0 Hypertensive urgency; I73.9 Peripheral vascular disease, unspecified; J20.9 Acute bronchitis, unspecified; E86.0 Dehydration; N18.31 Chronic kidney disease, stage 3a; Z20.822 Contact with and (suspected) exposure to COVID-19; Z80.51 Family history of malignant neoplasm of kidney; Z82.49 Family history of ischemic heart disease and other diseases of the circulatory system; Z87.891 Personal history of nicotine dependence; Z88.0 Allergy status to penicillin; M19.90 Unspecified osteoarthritis, unspecified site; K57.90 Diverticulosis of intestine, part unspecified, without perforation or abscess without bleeding
CPT/HCPCS: 36415; 71045; 71275; 80048; 80053; 80061; 81001; 83036; 83880; 84443; 84484; 85025; 87086; 87426; 93005; 94618; 96374; J0456; J0696; J1956; J7050; Q9967; U0003; 97110; 97116; 97530; 97535; 99285-25

== ENCOUNTER → 2021-05-16 | Outpatient (CLI) | payer MEDICARE ==
[~2021-05-16] MED LIST: AMLO-186 PO; CETI10TA74 PO; CITA20TA6 PO; CODEINE PO; CRESTOR10 MG PO; CYCL10TA19 PO; FENO160T PO; FURO40TA4 PO; LEVO75TA PO; LISI40TA6 PO; METO50TA6 PO; MULT-238 PO; OMEG1CAP50 PO; POTA10TA12 PO; PROMETH PO
[2021-05-16 14:01] LABS: ALBUMIN 3.9 g/dL (3.4-5.0); CALCIUM 10.6 mg/dL (8.5-10.1); CREATININE 1.9 mg/dL (0.6-1.0); GFR 25.7; POTASSIUM 4.9 mmol/L (3.5-5.1); TOTAL BILIRUBIN 0.4 mg/dL (0.2-1.0); TOTAL PROTEIN 7.8 g/dL (6.4-8.2)
== END ==
LOC: LAB 11:59
DX: I10 Essential (primary) hypertension (principal)
CPT/HCPCS: 36415; 80053; 83880

== ENCOUNTER → 2021-05-29 | Outpatient (CLI) | payer MEDICARE ==
[2021-05-29 12:09] LABS: ALBUMIN 3.8 g/dL (3.4-5.0); CALCIUM 10.2 mg/dL (8.5-10.1); CREATININE 2.8 mg/dL (0.6-1.0); GFR 16.4; POTASSIUM 5.5 mmol/L (3.5-5.1); TOTAL BILIRUBIN 0.3 mg/dL (0.2-1.0); TOTAL PROTEIN 7.7 g/dL (6.4-8.2)
[2021-05-31 21:03] LABS: CHOLESTEROL/HDL RATIO 4.3
== END ==
LOC: LAB 10:48
PROVIDERS: ATTEND Internal Medicine Cardiovascular Disease
DX: I10 Essential (primary) hypertension (principal); I25.10 Atherosclerotic heart disease of native coronary artery without angina pectoris; R73.03 Prediabetes
CPT/HCPCS: 36415; 80053; 80061; 83036

== ENCOUNTER → 2021-05-31 | Outpatient (CLI) | payer MEDICARE ==
[2021-05-31 12:36] LABS: ALBUMIN 3.9 g/dL (3.4-5.0); ALBUMIN/GLOBULIN RATIO 1.1 (1.0-1.7); CALCIUM 10.1 mg/dL (8.5-10.1); CREATININE 2.2 mg/dL (0.6-1.0); GFR 21.7; POTASSIUM 4.9 mmol/L (3.5-5.1); TOTAL BILIRUBIN 0.4 mg/dL (0.2-1.0); TOTAL PROTEIN 7.6 g/dL (6.4-8.2)
== END ==
LOC: LAB 11:33
PROVIDERS: ATTEND Internal Medicine Cardiovascular Disease
DX: I10 Essential (primary) hypertension (principal)
CPT/HCPCS: 36415; 80053; 83880

== ENCOUNTER → 2021-06-12 | Outpatient (CLI) | payer MEDICARE ==
[2021-06-12 12:03] LABS: ALBUMIN 3.7 g/dL (3.4-5.0); CALCIUM 9.4 mg/dL (8.5-10.1); CREATININE 1.5 mg/dL (0.6-1.0); GFR 33.8; POTASSIUM 4.7 mmol/L (3.5-5.1); TOTAL BILIRUBIN 0.4 mg/dL (0.2-1.0); TOTAL PROTEIN 7.4 g/dL (6.4-8.2)
== END ==
LOC: LAB 10:50
PROVIDERS: ATTEND Internal Medicine Cardiovascular Disease
DX: I10 Essential (primary) hypertension (principal)
CPT/HCPCS: 36415; 80053; 83880

== ENCOUNTER → 2021-08-14 | Outpatient (CLI) | payer MEDICARE ==
[2021-08-14 13:43] LABS: ALBUMIN 3.4 g/dL (3.4-5.0); ALBUMIN/GLOBULIN RATIO 0.9 (1.0-1.7); CALCIUM 9.8 mg/dL (8.5-10.1); CREATININE 1.2 mg/dL (0.6-1.0); GFR 43.6; POTASSIUM 4.2 mmol/L (3.5-5.1); TOTAL BILIRUBIN 0.5 mg/dL (0.2-1.0); TOTAL PROTEIN 7.1 g/dL (6.4-8.2)
[2021-08-14 17:52] LABS: CHOLESTEROL/HDL RATIO 4.4
[2021-08-17 01:20] LABS: HEMOGLOBIN A1C 5.8 % (4.8-5.6)
== END ==
LOC: LAB 11:01
PROVIDERS: ATTEND Internal Medicine Cardiovascular Disease
DX: I11.0 Hypertensive heart disease with heart failure (principal); I50.30 Unspecified diastolic (congestive) heart failure; R73.03 Prediabetes; I25.10 Atherosclerotic heart disease of native coronary artery without angina pectoris
CPT/HCPCS: 80053; 80061; 83036; 83880